=== PATIENT | female | born 1940 | race Caucasian/White ===

== ENCOUNTER 2018-05-10 16:32 | Emergency (ER) | payer MEDICARE, OTHER ==
[~2018-05-10] VITALS: Ht 157.5 cm; Wt 44.5 kg
[~2018-05-10 16:32] MED LIST: DIOVAN320 MG PO; Hctz PO; SYNTHROID25 MCG PO
[2018-05-10 17:52] LABS: BASOPHILS % 0.3 % (0.0-1.0); EOSINOPHILS # (AUTO) 0.1 (0.0-0.4); EOSINOPHILS % 1.5 % (0.0-6.0); HEMATOCRIT 34.7 % (34.2-44.1); HEMOGLOBIN 11.4 g/dL (12.0-16.0); LYMPHOCYTES # (AUTO) 1.5 (1.0-3.2); LYMPHOCYTES % 17.4 % (18.0-39.1); MEAN CORPUSCULAR HEMOGLOBIN 29.1 pg (28-32); MEAN CORPUSCULAR HGB CONC 32.9 g/dL (31-35); MEAN CORPUSCULAR VOLUME 88.5 fL (81-99); MONOCYTES # (AUTO) 0.6 (0.2-0.8); MONOCYTES % 6.8 % (4.4-11.3); NEUTROPHILS # (AUTO) 6.5 (2.1-6.9); NEUTROPHILS % 73.5 % (38.7-80.0); PLATELET COUNT 212 x10e3/uL (140-360); RED BLOOD COUNT 3.92 x10e6/uL (3.6-5.1); RED CELL DISTRIBUTION WIDTH 14.3 % (11.7-14.4)
[2018-05-10 18:01] LABS: CLARITY,URINE CLEAR (CLEAR); COLOR,URINE YELLOW (YELLOW); LEUKOCYTE ESTERASE ,URINE NEGATIVE (NEGATIVE); NITRITE,URINE NEGATIVE (NEGATIVE); PROTEIN,URINE DIPSTICK TRACE (NEGATIVE)
[2018-05-10 18:02] LABS: BILIRUBIN,URINE NEGATIVE (NEGATIVE); KETONES,URINE NEGATIVE (NEGATIVE); URINE UROBILINOGEN 0.2 mg/dL (0.2 - 1)
[2018-05-10 18:07] LABS: INR 1.04; PROTHROMBIN TIME 12.8 seconds (11.9-14.5)
[2018-05-10 18:10] LABS: PARTIAL THROMBOPLASTIN TIME 27.1 seconds (23.8-35.5)
[2018-05-10] MEDS ORDERED: NAMENDA10 MG (18:12)
[2018-05-10] MEDS ORDERED: ARICEPT5 MG PO (18:12)
[2018-05-10] MEDS ORDERED: PLAVIX75 MG PO (18:12)
[2018-05-10 18:13] LABS: BACTERIA,URINE RARE /HPF; CREATININE, SERUM 0.95 mg/dL (0.57-1.11); EPITHELIAL CELLS,URINE MODERATE /LPF; HYALINE CASTS 0-1 (0-1); RBC,URINE 0-5 /HPF (0-5); WBC,URINE (MAN) 0-5 /HPF (0-5)
--- NOTE | 2018-05-10 18:21 | Diagnostic Imaging Report ---
History:Fall Comparison studies: None Technique: Axial images were obtained from the skull base to the vertex. Coronal and sagittal images reconstructed from the axial data. Intravenous contrast: None Findings: Scalp/skull: No abnormalities. Extra-axial spaces: No masses. No fluid collections. Brain sulci: Moderate prominent. Ventricles: Moderate compensatory dilatation. No hydrocephalus. Parenchyma: Diffuse confluent hypodensities in the supratentorial white matter are small vessel ischemic changes. No masses, hemorrhage, acute or chronic cortical vascular insults. Sellar/suprasellar region: No abnormalities. Craniocervical junction: Patent foramen magnum. No Chiari one malformation. Incidental findings: Atherosclerotic calcifications in the carotid siphons . Impression: No acute abnormalities. Chronic findings: 1. Moderate generalized volume loss. 2. Diffuse supratentorial white matter small vessel ischemic changes. Signed by: Dr. Kirk Melgar M.D. on 05/10/2018 6:18 PM
--- NOTE | 2018-05-10 18:25 | Diagnostic Imaging Report ---
History: Fall Comparison studies: None Technique: Axial images were obtained through the cervical region.. Coronal and sagittal images reconstructed from the axial data.. Intravenous contrast: None Findings: Fractures: None. Soft tissues: No gross abnormalities. Atlantoaxial articulation: Intact. Alignment: Normal lordosis. No scoliosis. Cervicomedullary junction: No abnormalities. The foramen magnum is patent. Vertebrae: No infection or neoplasm. Postsurgical changes: Patient status post anterior cervical fusion from C5 to C7. Hardware in place. The intervening disc spaces are fused. Degenerative changes: Moderately degenerated disc at C4-5. Facet arthrosis on the left at C2-3, C3-4, bilaterally at C4-5. Moderate bilateral foraminal stenosis at C4-5 due to facet and uncovertebral arthrosis. Patent spinal canal. Atherosclerotic calcifications in the carotid bulbs and carotid siphon IMPRESSION: 1. No acute abnormalities. 2. Cannot adequately evaluate for ligament, spinal cord and or vascular abnormalities. 3. Patient status post anterior cervical fusion from C5 to C6. 4. Moderately degenerated disc and moderate degenerative bilateral foraminal stenosis at C4-5. Signed by: Dr. Kirk Melgar M.D. on 05/10/2018 6:22 PM
[2018-05-10] MEDS ORDERED: ACETAMINOPHEN/CODEINE 300MG - 30MG TAB PO ONE (19:00)
--- NOTE | 2018-05-10 19:40 | Diagnostic Imaging Report ---
FOOT LEFT COMPLETE, HUMERUS RIGHT 2+VIEWS, FOREARM RIGHT 2 VIEW, SHOULDER RIGHT COMPLETE Comparison: None Clinical history: \S\fall on right arm, concern for humerus fracture \[id number] Findings: Diffusely decreased bone mineralization limits sensitivity for fracture. Left foot: Linear lucency of the lateral 5th metatarsal base, only seen on one view. Otherwise no fracture or dislocation. Right shoulder, humerus, forearm: Irregularity of the radial head which may reflect sequelae of prior/remote trauma. Transverse fracture of the distal radial metaphysis with suggestion of mild sclerosis and callus formation. Right glenohumeral, acromioclavicular, elbow, and triscaphe degenerative changes. Impression: Decreased bone mineralization limits evaluation 1. Left foot: Questionable nondisplaced fracture of the base 5th metatarsal verus artifact; correlate with point tenderness. 2. Right arm: Age-indeterminate distal radial metaphysis fracture. Signed by: Dr Areli Gonzalez MD on 05/10/2018 7:35 PM
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
== END 2018-05-10 20:09 | disposition home or self-care (01) ==
LOC: ER 16:32
DX: S52.571A Other intraarticular fracture of lower end of right radius, initial encounter for closed fracture (principal); S92.412A Displaced fracture of proximal phalanx of left great toe, initial encounter for closed fracture; S40.211A Abrasion of right shoulder, initial encounter; S80.812A Abrasion, left lower leg, initial encounter; W01.0XXA Fall on same level from slipping, tripping and stumbling without subsequent striking against object, initial encounter; Y92.008 Other place in unspecified non-institutional (private) residence as the place of occurrence of the external cause; F03.90 Unspecified dementia, unspecified severity, without behavioral disturbance, psychotic disturbance, mood disturbance, and anxiety; I10 Essential (primary) hypertension
CPT/HCPCS: 36415; 70450; 71045; 72125; 80048; 81001; 85025; 85610; 85730; 99284